=== PATIENT | female | born 1940 | race Caucasian/White ===

== ENCOUNTER → 2017-05-08 | Day surgery (SDC) | payer OTHER ==
[~2017-05-08] VITALS: Ht 157.5 cm; Wt 76.7 kg
[~2017-05-08] MED LIST: ARTIFICIAL TEARS OPTH OINT 3.5 APPLIC/3.5 GM TUBO ONE; ATOR20TA15 PO; CHLORHEXIDINE GLUCONATE 2 % 1 PACK (2 CLOTHS) TOPICAL PRN; DO NOT ADM ANY ANTICOAGULANT DRUGS PRN; DORZ1SOL2 EACH EYE; INSULIN HUMAN REGULAR 1,000 UNITS/10 ML VIAL SQ PRN; LACTATED RINGER'S 1000 ML IV PRN; LEVO25TA4 PO; LIDOCAINE 2%/EPINEPHrine 1:100,000 20ML MDV INFIL ONE; LIDOCAINE HCL 1% 50 ML VIAL ONE; METOPROLOL TARTRATE 25 MG TAB PO PRN; PHENYLEPH/NS 1000 MCG/10 ML SYR IV ONE; POVIDONE IODINE 5% (ANTISEPSIS KIT) 4 APPLICATIONS EACH NARE PRN; PROPOFOL 200 MG/20 ML AMP IV ONE; SODIUM CHLORID 0.9% 500 ML IV PRN; ceFAZolin 2 GM PREMIX 50 ML IV SCH; ePHEDrine/NS 25 MG/5 ML SYR IV ONE; oxyCODONE/ACETAMINOPHEN 5 MG/325 MG TAB PO PRN
[2017-05-08 14:05] VITALS: BP 129/59; PULSE 60; RESP 18; TEMP 97.5; O2SAT 98
--- NOTE | 2017-05-10 08:05 | MP ---
cc: CHRISTOPHER SIBLEY M.D. DATE OF SURGERY 05/08/2017 PREOPERATIVE DIAGNOSES Left forehead biopsy-proven basal cell carcinoma. POSTOPERATIVE DIAGNOSIS Left forehead biopsy-proven basal cell carcinoma. OPERATION Excision frozen section left forehead basal cell carcinoma 1.5 x 1.2 cm area and local advancement closure. SURGEON Dr. Sibley ANESTHESIA General INDICATIONS A 76-year-old white female with biopsy-proven basal cell carcinoma of the left forehead with some residual lesion seen on the borders. The patient underwent an explanation of the surgery in terms of excision and frozen section to clear the margins and reconstruction based on the size and the location of the defect. The lesion is present just above the left eyebrow on the lateral aspect and closure would result in some degree of eyebrow distortion. The patient is willing to accept some asymmetry between the two eyebrows and wishes to proceed with the surgery. She understands the possibility of common issues such as bleeding, infection, abnormal scarring, chronic pain and possible need for future surgeries. She also understands that in case of distortion that is not within acceptable range of symmetry, a different procedure for reconstruction may need to be undertaken such as a skin graft or a rotation flap design, etc. PROCEDURE The patient was brought to the operating room was given supine position. Anesthesia was started. Prep and drape was done. IV antibiotics had been given. The preoperative markings were reinforced. A time-out was called and completed. The area was injected with lidocaine 1% with epi solution and the specimen was removed down to the underlying frontalis muscle border and areolar tissue. A specimen was suture marked superiorly, sent for frozen section. The hemostasis was completed. The area was mobilized slightly mostly in the lateral and upper aspect leaving the eyebrow portion mostly intact. The wound was closed both vertically and horizontally in a T-design with internal Vicryl and external simple Vicryl sutures as well. This allowed the lateral end of the eyebrow lifted only slightly compared to the right and provided a decent closure. The pathology report issued in the meantime indicated the presence of residual basal cell carcinoma and clear margins. The area was cleaned, dried and Steri-Strips were applied. The patient remained stable. Intraoperative blood loss less than 5 cc. No complications. signed, not fully reviewed MD ULICES Owen/BENJA /8:47 PM /7:55 AM MTDD
== END | disposition home or self-care (01) ==
LOC: HSDC 10:26
PROVIDERS: ATTEND Plastic Surgery
DX: C44.319 Basal cell carcinoma of skin of other parts of face (principal); I44.0 Atrioventricular block, first degree; E78.5 Hyperlipidemia, unspecified; E03.9 Hypothyroidism, unspecified; K21.9 Gastro-esophageal reflux disease without esophagitis; H40.9 Unspecified glaucoma; Z87.891 Personal history of nicotine dependence; Z79.899 Other long term (current) drug therapy
CPT/HCPCS: 00300; 14040; 88305; 88331; J0690; J2370; J7120